=== PATIENT | male | born 1995 | race Caucasian/White ===

== ENCOUNTER 2016-12-21 23:02 | Emergency (ER) | payer MEDICAID, OTHER ==
[~2016-12-21] VITALS: Ht 172.7 cm; Wt 100.0 kg
[2016-12-21 23:04] VITALS: Ht 172.7 cm; Wt 100.0 kg
[2016-12-21 23:08] VITALS: BP 139/111; PULSE 111; RESP 20; TEMP 98.4
--- NOTE | 2016-12-21 23:09 | ERD ---
ER Documentation Chief Complaint Date/Time DATE: 12/21/16 TIME: 23:08 Chief Complaint HPI This is a 21-year-old male brought in by rescue secondary to heroin abuse. Patient was found down. Patient was arousable by her paramedics. Patient's history of drug abuse. Denies suicidal homicidal ideation. Denies any other current issues. ROS All systems reviewed and are negative except as per history of present illness. Allergies Allergies: Coded Allergies: No Known Drug Allergies (Verified Allergy, Unknown, 12/19/14) PMhx/Soc Hx Alcohol Use: No Hx Substance Use: No Hx Tobacco Use: No Physical Exam Vitals Vital Signs Date Time Temp Pulse Resp B/P Pulse Ox O2 Delivery O2 Flow Rate FiO2 12/21/16 23:04 98.4 111 18 139/112 95 Physical Exam Const: [] Head: Atraumatic Eyes: Normal Conjunctiva ENT: Normal External Ears, Nose and Mouth. Neck: Full range of motion..~ No meningismus. Resp: Clear to auscultation bilaterally Cardio: Regular rate and rhythm, no murmurs Abd: Soft, non tender, non distended. Normal bowel sounds Skin: No petechiae or rashes Back: No midline or flank tenderness Ext: No cyanosis, or edema Neur: Awake and alert Psych: Normal Mood and Affect Procedures/MDM Medical decision-makin-year-old male who comes in for heroin abuse. Patient was found with a vial of heroin. Police are here. Heroin given to police. Patient be discharged home. Advised to stop using illicit drugs Departure Diagnosis: Primary Impression: Drug use Additional Impressions: Drug abuse Drug overdose Encounter type: initial encounter Injury intent: accidental or unintentional Qualified Code: T50.901A - Drug overdose, accidental or unintentional, initial encounter Condition: Stable Patient Instructions: Drug Abuse MARQUITA ARECHIGA Dec 21, 2016 23:09
== END 2016-12-21 23:25 | disposition home or self-care (01) ==
LOC: E/R 23:02
DX: F11.120 Opioid abuse with intoxication, uncomplicated (principal); T50.901A Poisoning by unspecified drugs, medicaments and biological substances, accidental (unintentional), initial encounter
CPT/HCPCS: 99282